=== PATIENT | male | born 1965 | race Caucasian/White ===

== ENCOUNTER → 2020-04-18 | Outpatient (CLI) | payer OTHER ==
[~2020-04-18] MED LIST: ALLO300T PO; ESCI10TA PO; LISI1TAB23 PO; LISINOPRIL PO
[2020-04-18 14:41] LABS: BASOPHILS % (AUTO) 1 % (0-1); EOSINOPHILS % (AUTO) 8 % (1-7); LYMPHOCYTES % (AUTO) 22 % (22-44); MEAN CORPUSCULAR HEMOGLOBIN 33.6 pg (27.5-34.5); MEAN CORPUSCULAR HGB CONC 34.5 g/dL (33.2-36.2); MEAN PLATELET VOLUME 7.9 fL (7.4-10.4); MONOCYTES % (AUTO) 8 % (2-9); NEUTROPHILS % (AUTO) 60 % (42-75); PLATELET COUNT 304 x10^3/uL (130-400); RED BLOOD COUNT 4.39 x10^6/uL (4.38-5.82); RED CELL DISTRIBUTION WIDTH 13.6 % (9.4-14.8)
[2020-04-18 14:43] LABS: ANION GAP 6 mmol/L (5-15); CHLORIDE 109 mmol/L (98-107)
[2020-04-18 14:46] LABS: ALANINE AMINOTRANSFERASE 68 U/L (12-78); ALKALINE PHOSPHATASE 77 U/L (45-117); BILIRUBIN,TOTAL 1.4 mg/dL (0.2-1.0); TOTAL PROTEIN 7.3 g/dL (6.4-8.2)
[2020-04-18 16:18] LABS: MD SCAN
== END | disposition home or self-care (01) ==
LOC: STAR 13:10
PROVIDERS: ATTEND Surgery
DX: Z01.812 Encounter for preprocedural laboratory examination (principal); Z20.828 Contact with and (suspected) exposure to other viral communicable diseases; K40.91 Unilateral inguinal hernia, without obstruction or gangrene, recurrent
CPT/HCPCS: 36415; 80053; 85025; 87635; 93005

== ENCOUNTER 2020-04-23 12:29 | Day surgery (SDC) | payer OTHER ==
[~2020-04-23] VITALS: Ht 185.4 cm; Wt 106.3 kg
[~2020-04-23 12:29] MED LIST changes: +EPHEDRINE 50 MG/ML, 1ML IVPush PRN; +FENTANYL PF 100 MCG/2ML IV PRN; +HYDROmorphone 1 MG/ML, 1ML INJ IVPush PRN; +LABETALOL 5MG/ML, 20ML IV PRN; +ONDANSETRON 2MG/ML, 2ML IVPush PRN; +OXYcodone 5 MG/5 ML ORAL.SOL UDC PO PRN; +PROMETHAZINE 25 MG/ML, 1ML IVPush PRN; +hydrALAzine 20 MG/ML, 1ML IV PRN
[2020-04-23 13:15] VITALS: BP 144/91
[2020-04-23] MEDS ORDERED: CHLORHEXIDINE 15 ML UDC MM ONE (13:30)
[2020-04-23] MEDS ORDERED: ACETAMINOPHEN 500 MG TABLET PO ONE (13:30)
[2020-04-23] MEDS ORDERED: TAMSULOSIN 0.4 MG CAP.ER.24H PO ONE (13:30)
[2020-04-23] MEDS ORDERED: BUPIVACAINE/PF 0.5% ONE (13:35)
[2020-04-23] MEDS ORDERED: EPINEPHRINE 1 MG/ML, 1ML ONE (13:35)
[2020-04-23] MEDS ORDERED: LACTATED RINGERS 1,000 ML IV SCH (14:00)
[2020-04-23] MEDS ORDERED: FENTANYL PF 250 MCG/5ML ONE (14:51)
[2020-04-23] MEDS ORDERED: MIDAZOLAM 1 MG/ML, 2ML ONE (14:51)
[2020-04-23] MEDS ORDERED: SUCCINYLCHOLINE 20 MG/ML, 10ML ONE (14:58)
[2020-04-23] MEDS ORDERED: DEXAMETHASONE 4 MG/ML, 1ML ONE (14:58)
[2020-04-23] MEDS ORDERED: ONDANSETRON 2MG/ML, 2ML ONE (14:58)
[2020-04-23] MEDS ORDERED: CEFAZOLIN 1,000 MG ONE (14:58)
[2020-04-23] MEDS ORDERED: PROPOFOL 10 MG/ML, 20ML ONE (14:58)
[2020-04-23] MEDS ORDERED: ROCURONIUM 10MG/ML,5ML ONE (14:58)
[2020-04-23] MEDS ORDERED: KETOROLAC 30 MG/1 ML ONE (15:31)
[2020-04-23] MEDS ORDERED: SUGAMMADEX 200 MG/2 ML IVPush ONE (15:31)
[2020-04-23] MEDS ORDERED: BUPIVACAINE/PF-EPI 0.5% 1:200K INFIL ONE (15:45)
== END 2020-04-23 18:30 | disposition home or self-care (01) ==
LOC: OUT 12:29
PROVIDERS: ATTEND Surgery
DX: K40.91 Unilateral inguinal hernia, without obstruction or gangrene, recurrent (principal); D17.6 Benign lipomatous neoplasm of spermatic cord; I10 Essential (primary) hypertension; M10.9 Gout, unspecified; E66.9 Obesity, unspecified; Z79.899 Other long term (current) drug therapy; Z82.49 Family history of ischemic heart disease and other diseases of the circulatory system
CPT/HCPCS: 49651; C1781; J0171; J0330; J0690; J1100; J1885; J2250; J2405; J2704; J3010; J7120